=== PATIENT | male | born 1990 | race Caucasian/White ===

== ENCOUNTER 2020-09-21 20:11 | Inpatient (IN) | payer SELFPAY ==
[~2020-09-21] VITALS: Ht 185.4 cm; Wt 89.1 kg
[2020-09-21] MEDS ORDERED: IV NORMAL SALINE 1000ML BAG 1,000 ML IV ONE (20:30)
[2020-09-21] MEDS ORDERED: CHARCOAL/SORBITOL 50 GM/240 ML SUSPENSION. PO ONE (20:30)
--- NOTE | 2020-09-21 20:35 | ED.ADGEN ---
Past Medical History Past Medical History: Anxiety, Other Additional Past Medical Histor: opioid addiction Past Surgical History: No Surgical History Smoking Status: Never Smoker Alcohol Use: Occasionally General Adult EDM: Chief Complaint: OVERDOSE HPI: HPI: Patient is a 30 year old male brought in by EMS for overdose. 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 Patient states an hour prior to arrival he took approximately 40 hydrocodone 103 25. Patient states he has not thrown up since. Patient has a history of methadone use been trying to wean himself off them and having some withdrawal symptoms over the past few days. Bought these hydrocodone's off the street. Denies any coingestions. Denies any recent illness. Review of Systems: Review of Systems: All other systems within normal limits except for as noted in the HPI Current Medications: Current Medications Medications (Trade) Dose Ordered Sig/Kenneth Start Time Stop Time Status Last Admin Dose Admin Charcoal/Sorbitol (Insta-Lisset Sorbitol) 50 gm 1X ONCE 09/21/20 20:30 09/21/20 20:31 DC 09/21/20 20:42 50 GM Sodium Chloride 1,000 ml @ 1,000 mls/hr 1X ONCE 09/21/20 20:30 09/21/20 21:29 DC 09/21/20 20:43 1,000 MLS/HR Allergies: Allergies: Allergies Coded Allergies Type Severity Reaction Last Updated Verified Penicillins Allergy Unknown 09/21/20 Yes topiramate Allergy Unknown 09/21/20 Yes Physical Exam: PE: Constitutional: Well developed, well nourished, no acute distress, non-toxic appearance. [] HENT: Normocephalic, atraumatic, bilateral external ears normal, nose normal. [] Eyes: PERRLA, conjunctiva normal, no discharge. [] Neck: No rigidity, supple, no stridor. [] Cardiovascular: Regular rate and rhythm, brisk cap refill [] Lungs & Thorax: Non labored symmetric respirations, no tachypnea or respiratory distress [] Abdomen: Soft, nondistended. Skin: Warm, dry, no erythema, no rash. [] Back: Unremarkable Extremities: No deformities, range of motion grossly intact, no lower extremity edema [] Neurologic: Alert and oriented X 3, no focal deficits noted. [] Psychologic: Flat affect[] Current Patient Data: Labs: Laboratory Tests Test 09/21/20 20:40 09/21/20 21:20 09/21/20 23:07 09/22/20 00:02 White Blood Count 7.1 x10^3/uL (4.0-11.0) Red Blood Count 4.35 x10^6/uL (4.30-5.70) Hemoglobin 12.9 g/dL (13.0-17.5) L Hematocrit 38.1 % (39.0-53.0) L Mean Corpuscular Volume 88 fL (79-100) Mean Corpuscular Hemoglobin 30 pg (25-35) Mean Corpuscular Hemoglobin Concent 34 g/dL (31-37) Red Cell Distribution Width 12.6 % (11.5-14.5) Platelet Count 226 x10^3/uL (140-400) Neutrophils (%) (Auto) 67 % (31-73) Lymphocytes (%) (Auto) 22 % (24-48) L Monocytes (%) (Auto) 7 % (0-9) Eosinophils (%) (Auto) 3 % (0-3) Basophils (%) (Auto) 1 % (0-3) Neutrophils # (Auto) 4.8 x10^3/uL (1.8-7.7) Lymphocytes # (Auto) 1.6 x10^3/uL (1.0-4.8) Monocytes # (Auto) 0.5 x10^3/uL (0.0-1.1) Eosinophils # (Auto) 0.2 x10^3/uL (0.0-0.7) Basophils # (Auto) 0.0 x10^3/uL (0.0-0.2) Prothrombin Time 12.9 SEC (11.7-14.0) Prothrombin Time INR 1.0 (0.8-1.1) Sodium Level 141 mmol/L (136-145) Potassium Level 4.0 mmol/L (3.5-5.1) Chloride Level 104 mmol/L (98-107) Carbon Dioxide Level 27 mmol/L (21-32) Anion Gap 10 (6-14) Blood Urea Nitrogen 14 mg/dL (8-26) Creatinine 0.8 mg/dL (0.7-1.3) Estimated GFR (Cockcroft-Gault) 112.0 BUN/Creatinine Ratio 18 (6-20) Glucose Level 102 mg/dL (70-99) H Calcium Level 8.7 mg/dL (8.5-10.1) Phosphorus Level 4.0 mg/dL (2.6-4.7) Magnesium Level 2.1 mg/dL (1.8-2.4) Total Bilirubin 0.3 mg/dL (0.2-1.0) Aspartate Amino Transferase (AST) 20 U/L (15-37) Alanine Aminotransferase (ALT) 27 U/L (16-63) Alkaline Phosphatase 115 U/L (46-116) Total Protein 7.3 g/dL (6.4-8.2) Albumin 3.5 g/dL (3.4-5.0) Albumin/Globulin Ratio 0.9 (1.0-1.7) L Thyroid Stimulating Hormone (TSH) 1.399 uIU/mL (0.358-3.74) Salicylates Level < 2.8 mg/dL (2.8-20.0) L Salicylate Last Dose Date Unknown Salicylate Last Dose Time Unknown Acetaminophen Level 82.1 mcg/ml (10-30) H 35.8 mcg/ml (10-30) H Acetaminophen Last Dose Date Unknown Acetaminophen Last Dose Time Unknown Ethyl Alcohol Level < 10 mg/dL (0-10) Urine Collection Type Unknown Urine Color Yellow Urine Clarity Clear Urine pH 6.0 (<5.0-8.0) Urine Specific [place] 1.020 (1.000-1.030) Urine Protein Negative mg/dL (NEG-TRACE) Urine Glucose (UA) Negative mg/dL (NEG) Urine Ketones (Stick) Negative mg/dL (NEG) Urine Blood Negative (NEG) Urine Nitrite Negative (NEG) Urine Bilirubin Negative (NEG) Urine Urobilinogen Dipstick 0.2 mg/dL (0.2 mg/dL) Urine Leukocyte Esterase Negative (NEG) Urine RBC 0 /HPF (0-2) Urine WBC Occ /HPF (0-4) Urine Bacteria 0 /HPF (0-FEW) Urine Mucus Mod /LPF Urine Opiates Screen Pos (NEG) Urine Methadone Screen Pos (NEG) Urine Barbiturates Neg (NEG) Urine Phencyclidine Screen Neg (NEG) Urine Amphetamine/Methamphetamine Neg (NEG) Urine Benzodiazepines Screen Neg (NEG) Urine Cocaine Screen Neg (NEG) Urine Cannabinoids Screen Neg (NEG) Urine Ethyl Alcohol Neg (NEG) SARS-CoV-2 Antigen (Rapid) Negative (NEGATIVE) Laboratory Tests 09/21/20 20:40 Laboratory Tests 09/21/20 20:40 Vital Signs: Vital Signs Date Time Temp Pulse Resp B/P (MAP) Pulse Ox O2 Delivery O2 Flow Rate FiO2 09/22/20 06:57 85 13 97 09/22/20 04:00 97.7 97.7 09/21/20 20:11 129/80 (96) Room Air EKG: EKG: Sinus rhythm, heart rate 81 bpm, normal axis, no ST ovation depression, no ectopy, T waves unremarkable. [] Heart Score: Risk Factors: Risk Factors: DM, Current or recent (<one month) smoker, HTN, HLP, family hist ory of CAD, obesity. Risk Scores: Score 0 - 3: 2.5% MACE over next 6 weeks - Discharge Home Score 4 - 6: 20.3% MACE over next 6 weeks - Admit for Clinical Observation Score 7 - 10: 72.7% MACE over next 6 weeks - Early Invasive Strategies Radiology/Procedures: Radiology/Procedures: [] Course & Med Decision Making: Course & Med Decision Making Patient given activated charcoal on arrival. 4-hour acetaminophen level dropped to 30. Resulted back to poison control center as patient is now cleared does not need any interventions. Discussed with psych assessment team and will contact us tomorrow we will hold that for patient is pending a chart review and accepting physician. Pending psychiatric placement at shift change I received signout at shift change. Patient has been medically cleared from Tylenol overdose. Spoke to [facility] Michelle and patient reported he was involuntary because he wanted his "withdrawal" treated, takes methadone. [facility]. Pt now reports he's voluntary. Will admit for psych consult. I have spoken with the patient and/or caregivers. I have explained the patient's condition, diagnosis and treatment plan based on the information available to me at this time. I have answered the patient's and/or caregivers questions and answered any concerns. The patient and/or caregivers have as good an understanding of the patient's diagnosis, condition and treatment plan as can be expected at this point. The patient has been stabilized within the capability of the emergency department. The patient will be transported for further care and management or will be moved to an observation or inpatient service. I have communicated with the staff or medical practitioner taking over this patient's care. Dragon Disclaimer: Dragon Disclaimer: This electronic medical record was generated, in whole or in part, using a voice recognition dictation system. Departure Departure Impression: Primary Impression: Suicide attempt by acetaminophen overdose Disposition: ADMITTED INPT THIS HOSP Admitting Physician: ASHLY (Dr. Louis) Condition: STABLE NIK SOL MD Sep 21, 2020 20:35 AMOS TORRES DO Sep 22, 2020 07:29
[2020-09-21 20:59] LABS: BASO % 1 % (0-3); EOS # 0.2 x10^3/uL (0.0-0.7); EOS % 3 % (0-3); HEMATOCRIT 38.1 % (39.0-53.0); HEMOGLOBIN 12.9 g/dL (13.0-17.5); LYMPH # 1.6 x10^3/uL (1.0-4.8); LYMPH % 22 % (24-48); MEAN CORPUSCULAR HEMOGLOBIN 30 pg (25-35); MEAN CORPUSCULAR HGB CONC 34 g/dL (31-37); MEAN CORPUSCULAR VOLUME 88 fL (79-100); MONO # 0.5 x10^3/uL (0.0-1.1); MONO % 7 % (0-9); NEUT # 4.8 x10^3/uL (1.8-7.7); NEUT % 67 % (31-73); PLATELET COUNT 226 x10^3/uL (140-400); RED BLOOD COUNT 4.35 x10^6/uL (4.30-5.70); RED CELL DISTRIBUTION WIDTH 12.6 % (11.5-14.5); WHITE BLOOD COUNT 7.1 x10^3/uL (4.0-11.0)
[2020-09-21 21:09] LABS: PROTHROMBIN TIME PATIENT 12.9 SEC (11.7-14.0)
[2020-09-21 21:10] LABS: CALCIUM 8.7 mg/dL (8.5-10.1); CREATININE 0.8 mg/dL (0.7-1.3)
[2020-09-21 21:16] LABS: ALBUMIN 3.5 g/dL (3.4-5.0); ALBUMIN/GLOBULIN RATIO 0.9 (1.0-1.7); MAGNESIUM 2.1 mg/dL (1.8-2.4); TOTAL BILIRUBIN 0.3 mg/dL (0.2-1.0); TOTAL PROTEIN 7.3 g/dL (6.4-8.2)
[2020-09-21 21:20] LABS: ACETAMIN 82.1 mcg/ml (10-30); ETHANOL < 10 mg/dL (0-10); SALIC < 2.8 mg/dL (2.8-20.0)
[2020-09-21 21:30] LABS: BILIRUBIN,URINE NEGATIVE (NEG); CLARITY,URINE CLEAR; COLOR,URINE YELLOW; NITRITE,URINE NEGATIVE (NEG); PROTEIN,URINE NEGATIVE (NEG-TRACE); UROBILINOGEN,URINE 0.2 mg/dL (0.2 mg/dL)
[2020-09-21 21:37] LABS: BARBITURATES NEG (NEG); BENZODIAZEPINES NEG (NEG); CANNABINOIDS NEG (NEG); COCAINE NEG (NEG); METHADONE POS (NEG); OPIATES POS (NEG); PHENCYCLIDINE NEG (NEG)
[2020-09-21 21:39] LABS: AMPHETAMINE/METHAMPHETAMINE NEG (NEG)
[2020-09-21 21:41] LABS: BACTERIA,URINE 0 /HPF (0-FEW); RBC,URINE 0 /HPF (0-2); WBC,URINE OCC /HPF (0-4)
[2020-09-21 23:35] LABS: ACETAMIN 35.8 mcg/ml (10-30)
--- NOTE | 2020-09-22 04:42 | EKG ---
[facility] [address] [place] [address] Test Date: 2020-09-21 Test Time: 20:33:40 Pat Name: PERFECTO LAMA Department: Room: Gender: M Sample Case Porter: : 1990 Requested By: NIK SOL Order Number: [id number] Reading MD: Anthony Kahn Measurements Intervals [place] Rate: 81 P: 38 [place]: 144 QRS: 17 QRSD: 80 T: 42 QT: 362 QTc: 421 Interpretive Statements SINUS RHYTHM NORMAL ECG RI6.01 No previous ECG available for comparison Electronically Signed On 09-30-2020 13:01:22 [employer]CHNICIAN by Anthony Kahn
[2020-09-22] MEDS ORDERED: LACTULOSE 20 GM/30 ML SOLUTION. PO PRN (08:00)
[2020-09-22] MEDS ORDERED: MAGNESIUM HYDROXIDE 2,400 MG/30 ML ORAL.SUSP. PO PRN (08:00)
[2020-09-22] MEDS ORDERED: ELECTROLYTE (NON-ICU) PROTOCOL. MC PRN (08:00)
[2020-09-22] MEDS ORDERED: PROCHLORPERAZINE 25 MG SUPP.RECT. PR PRN (08:00)
[2020-09-22] MEDS ORDERED: BISACODYL 10 MG SUPP.RECT. PR PRN (08:00)
[2020-09-22] MEDS ORDERED: CALCIUM CARBONATE 500 MG TAB.CHEW PO PRN (08:00)
[2020-09-22] MEDS ORDERED: MAG HYDROX/ALUMINUM HYD/SIMETH 30 ML ORAL.SUSP PO PRN (08:00)
[2020-09-22] MEDS ORDERED: HYDROcodone/APAP 5/325MG 1 TAB TABLET PO PRN (08:00)
[2020-09-22] MEDS ORDERED: KETOROLAC 15 MG/ML VIAL. IV PRN (08:00)
[2020-09-22] MEDS: SENNOSIDES/DOCUSATE 8.6/50MG TABLET. PO SCH ×3 (09:00→19:41)
[2020-09-22 10:00] VITALS: BP 150/74
--- NOTE | 2020-09-22 10:43 | NUR ---
RUPERT following for discharge planning. Spoke with RN and reviewed chart. Pt on room air. Pt COVID pending, Rapid negative. Pt on 1:1 per SI attempt via OD. ELKE referral to [facility] for possible placement. RUPERT following. Addendum: 09/22/20 at 1558 by TERESA EMERY Spoke with Bakari from [facility]. Waiting on COVID result for in-patient psych placement. Rapid negative, awaiting results of PCR.
[2020-09-22] MEDS: ONDANSETRON PF 4 MG/2 ML VIAL. IVP PRN (11:25)
[2020-09-22] MEDS: HEPARIN for SUB-Q USE 5,000 UNIT/ML VIAL. SQ SCH ×2 (13:34→19:42)
[2020-09-22 14:59] VITALS: BP 144/80
--- NOTE | 2020-09-22 16:54 | PDOC1 ---
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 Apparently the patient had taken 40 hydrocodone's of 05/24/2025 and was given activated charcoal in the emergency department. Course in the emergency department is as follows Course & Med Decision Making Patient given activated charcoal on arrival. 4-hour acetaminophen level dropped to 30. Resulted back to poison control center as patient is now cleared does not need any interventions. Discussed with psych assessment team and will contact us tomorrow we will hold that for patient is pending a chart review and accepting physician. Pending psychiatric placement at shift change I received signout at shift change. Patient has been medically cleared from Tylenol overdose. Spoke to [facility] Martinez and patient reported he was involuntary because he wanted his "withdrawal" treated, takes methadone. Declined by [facility] Martinez. Pt now reports he's voluntary. Will admit for psych consult. I have spoken with the patient and/or caregivers. I have explained the patient's condition, diagnosis and treatment plan based on the information available to me at this time. I have answered the patient's and/or caregivers questions and answered any concerns. The patient and/or caregivers have as good an understanding of the patient's diagnosis, condition and treatment plan as can be expected at this point. The patient has been [facility] of [facility] emergency department. The patient will be transported for further care and management or will be moved to an observation or inpatient service. I have communicated with the staff or medical practitioner taking over this patient's care. The patient is currently on methadone trying to wean off his opiate addiction. He is quite tearful during my encounter, reassurance has been provided medically the patient seems to be in no apparent distress and he has been admitted for medical optimization prior to transitioning to an inpatient psych facility most likely patient denies any headache no blurred vision no chest pain no palpitations no shortness of breath no abdominal pain no nausea vomiting or diarrhea has been reported. No urinary symptoms, plan of care explained in detail and all concerns addressed to the best of my abilities. Past Medical History Past Medical History Opioid abuse Psych: Anxiety, Addictions Past Surgical History Past Surgical History: No pertinent history Family History Family History: No Significant Social History Smoke: No ALCOHOL: none Drugs: None, Other (Methadone) Current Problem List Problem List Problems Medical Problems: (1) Suicide attempt by acetaminophen overdose Status: Acute Current Medications Current Medications Current Medications Medications (Trade) Dose Ordered Sig/Kenneth Start Time Stop Time Status Last Admin Dose Admin Acetaminophen (Tylenol) 650 mg PRN Q6HRS PRN 09/22/20 08:00 Acetaminophen/ Hydrocodone Bitart (Lortab 5/325) 1 tab PRN Q4HRS PRN 09/22/20 08:00 Al Hydroxide/Mg Hydroxide (Mylanta Plus Xs) 30 ml PRN Q3HRS PRN 09/22/20 08:00 Alprazolam (Xanax) 0.5 mg PRN Q8HRS PRN 09/22/20 12:00 Bisacodyl (Dulcolax Supp) 10 mg PRN DAILY PRN 09/22/20 08:00 Calcium Carbonate/ Glycine (Tums) 500 mg PRN Q3HRS PRN 09/22/20 08:00 Charcoal/Sorbitol (Insta-Lisset Sorbitol) 50 gm 1X ONCE 09/21/20 20:30 09/21/20 20:31 DC 09/21/20 20:42 50 GM Heparin Sodium (Porcine) (Heparin Sodium) 5,000 unit Q8HRS 09/22/20 14:00 09/22/20 13:34 5,000 UNIT Info (Non-Icu Electrolyte Protocol) 1 ea PRN DAILY PRN 09/22/20 08:00 Ketorolac Tromethamine (Toradol 15mg Vial) 15 mg PRN Q6HRS PRN 09/22/20 08:00 09/27/20 07:59 Lactulose (Lactulose) 20 gm PRN Q12HR PRN 09/22/20 08:00 Magnesium Hydroxide (Milk Of Magnesia) 2,400 mg PRN Q12HR PRN 09/22/20 08:00 Ondansetron HCl (Zofran) 4 mg PRN Q6HRS PRN 09/22/20 08:00 09/22/20 11:25 4 MG Prochlorperazine (Compazine) 25 mg PRN Q12HR PRN 09/22/20 08:00 Senna/Docusate Sodium (Senna Plus) 1 tab BID 09/22/20 09:00 09/22/20 11:25 1 TAB Sodium Chloride 1,000 ml @ 1,000 mls/hr 1X ONCE 09/21/20 20:30 09/21/20 21:29 DC 09/21/20 20:43 1,000 MLS/HR Zolpidem Tartrate (Ambien) 5 mg PRN QHS PRN 09/22/20 08:00 Allergies Allergies Allergies Coded Allergies Type Severity Reaction Last Updated Verified Penicillins Allergy Intermediate 09/22/20 Yes topiramate Allergy Intermediate 09/22/20 Yes ROS Review of System CONSTITUTIONAL: No fever or chills EYES: No recent changes SKIN: No rash or itching CARDIOVASCULAR: No chest pain, syncope, palpitations, or edema RESPIRATORY: No SOB or cough GASTROINTESTINAL: No nausea, vomiting or abdominal pain NEUROLOGICAL: No headaches or weakness ENDOCRINE: No cold or heat intolerance GENITOURINARY: No urgency or frequency of urination MUSCULOSKELETAL: No back pain or joint pain LYMPHATICS: No enlarged lymph nodes PSYCHIATRIC: No anxiety or depression Physical Exam Physical Exam GEN.: No apparent distress. Alert and oriented. HEENT: Head is normocephalic, atraumatic NECK: Supple. LUNGS: Clear to auscultation. HEART: RRR, S1, S2 present. Peripheral pulses intact ABDOMEN: Soft, nontender. Positive bowel sounds. EXTREMITIES: Without any cyanosis. NEUROLOGIC: Normal speech, normal tone PSYCHIATRIC: Normal affect, normal mood. SKIN: No ulcerations Vitals Vitals Vital Signs Date Time Temp Pulse Resp B/P (MAP) Pulse Ox O2 Delivery O2 Flow Rate FiO2 09/22/20 14:59 97.9 86 18 144/80 (101) 100 Room Air 97.9 Labs Labs Laboratory Tests Test 09/21/20 20:40 09/21/20 21:20 09/21/20 23:07 09/22/20 00:02 White Blood Count 7.1 x10^3/uL (4.0-11.0) Red Blood Count 4.35 x10^6/uL (4.30-5.70) Hemoglobin 12.9 g/dL (13.0-17.5) Hematocrit 38.1 % (39.0-53.0) Mean Corpuscular Volume 88 fL (79-100) Mean Corpuscular Hemoglobin 30 pg (25-35) Mean Corpuscular Hemoglobin Concent 34 g/dL (31-37) Red Cell Distribution Width 12.6 % (11.5-14.5) Platelet Count 226 x10^3/uL (140-400) Neutrophils (%) (Auto) 67 % (31-73) Lymphocytes (%) (Auto) 22 % (24-48) Monocytes (%) (Auto) 7 % (0-9) Eosinophils (%) (Auto) 3 % (0-3) Basophils (%) (Auto) 1 % (0-3) Neutrophils # (Auto) 4.8 x10^3/uL (1.8-7.7) Lymphocytes # (Auto) 1.6 x10^3/uL (1.0-4.8) Monocytes # (Auto) 0.5 x10^3/uL (0.0-1.1) Eosinophils # (Auto) 0.2 x10^3/uL (0.0-0.7) Basophils # (Auto) 0.0 x10^3/uL (0.0-0.2) Prothrombin Time 12.9 SEC (11.7-14.0) Prothromb Time International Ratio 1.0 (0.8-1.1) Sodium Level 141 mmol/L (136-145) Potassium Level 4.0 mmol/L (3.5-5.1) Chloride Level 104 mmol/L (98-107) Carbon Dioxide Level 27 mmol/L (21-32) Anion Gap 10 (6-14) Blood Urea Nitrogen 14 mg/dL (8-26) Creatinine 0.8 mg/dL (0.7-1.3) Estimated GFR (Cockcroft-Gault) 112.0 BUN/Creatinine Ratio 18 (6-20) Glucose Level 102 mg/dL (70-99) Calcium Level 8.7 mg/dL (8.5-10.1) Phosphorus Level 4.0 mg/dL (2.6-4.7) Magnesium Level 2.1 mg/dL (1.8-2.4) Total Bilirubin 0.3 mg/dL (0.2-1.0) Aspartate Amino Transf (AST/SGOT) 20 U/L (15-37) Alanine Aminotransferase (ALT/SGPT) 27 U/L (16-63) Alkaline Phosphatase 115 U/L (46-116) Total Protein 7.3 g/dL (6.4-8.2) Albumin 3.5 g/dL (3.4-5.0) Albumin/Globulin Ratio 0.9 (1.0-1.7) Thyroid Stimulating Hormone (TSH) 1.399 uIU/mL (0.358-3.74) Salicylates Level < 2.8 mg/dL (2.8-20.0) Salicylate Last Dose Date Unknown Salicylate Last Dose Time Unknown Acetaminophen Level 82.1 mcg/ml (10-30) 35.8 mcg/ml (10-30) Acetaminophen Last Dose Date Unknown Acetaminophen Last Dose Time Unknown Ethyl Alcohol Level < 10 mg/dL (0-10) Urine Collection Type Unknown Urine Color Yellow Urine Clarity Clear Urine pH 6.0 (<5.0-8.0) Urine Specific [place] 1.020 (1.000-1.030) Urine Protein Negative mg/dL (NEG-TRACE) Urine Glucose (UA) Negative mg/dL (NEG) Urine Ketones (Stick) Negative mg/dL (NEG) Urine Blood Negative (NEG) Urine Nitrite Negative (NEG) Urine Bilirubin Negative (NEG) Urine Urobilinogen Dipstick 0.2 mg/dL (0.2 mg/dL) Urine Leukocyte Esterase Negative (NEG) Urine RBC 0 /HPF (0-2) Urine WBC Occ /HPF (0-4) Urine Bacteria 0 /HPF (0-FEW) Urine Mucus Mod /LPF Urine Opiates Screen Pos (NEG) Urine Methadone Screen Pos (NEG) Urine Barbiturates Neg (NEG) Urine Phencyclidine Screen Neg (NEG) Urine Amphetamine/Methamphetamine Neg (NEG) Urine Benzodiazepines Screen Neg (NEG) Urine Cocaine Screen Neg (NEG) Urine Cannabinoids Screen Neg (NEG) Urine Ethyl Alcohol Neg (NEG) SARS-CoV-2 Antigen (Rapid) Negative (NEGATIVE) Laboratory Tests Test 09/21/20 20:40 09/21/20 21:20 09/21/20 23:07 09/22/20 00:02 White Blood Count 7.1 x10^3/uL (4.0-11.0) Red Blood Count 4.35 x10^6/uL (4.30-5.70) Hemoglobin 12.9 g/dL (13.0-17.5) Hematocrit 38.1 % (39.0-53.0) Mean Corpuscular Volume 88 fL (79-100) Mean Corpuscular Hemoglobin 30 pg (25-35) Mean Corpuscular Hemoglobin Concent 34 g/dL (31-37) Red Cell Distribution Width 12.6 % (11.5-14.5) Platelet Count 226 x10^3/uL (140-400) Neutrophils (%) (Auto) 67 % (31-73) Lymphocytes (%) (Auto) 22 % (24-48) Monocytes (%) (Auto) 7 % (0-9) Eosinophils (%) (Auto) 3 % (0-3) Basophils (%) (Auto) 1 % (0-3) Neutrophils # (Auto) 4.8 x10^3/uL (1.8-7.7) Lymphocytes # (Auto) 1.6 x10^3/uL (1.0-4.8) Monocytes # (Auto) 0.5 x10^3/uL (0.0-1.1) Eosinophils # (Auto) 0.2 x10^3/uL (0.0-0.7) Basophils # (Auto) 0.0 x10^3/uL (0.0-0.2) Prothrombin Time 12.9 SEC (11.7-14.0) Prothromb Time International Ratio 1.0 (0.8-1.1) Sodium Level 141 mmol/L (136-145) Potassium Level 4.0 mmol/L (3.5-5.1) Chloride Level 104 mmol/L (98-107) Carbon Dioxide Level 27 mmol/L (21-32) Anion Gap 10 (6-14) Blood Urea Nitrogen 14 mg/dL (8-26) Creatinine 0.8 mg/dL (0.7-1.3) Estimated GFR (Cockcroft-Gault) 112.0 BUN/Creatinine Ratio 18 (6-20) Glucose Level 102 mg/dL (70-99) Calcium Level 8.7 mg/dL (8.5-10.1) Phosphorus Level 4.0 mg/dL (2.6-4.7) Magnesium Level 2.1 mg/dL (1.8-2.4) Total Bilirubin 0.3 mg/dL (0.2-1.0) Aspartate Amino Transf (AST/SGOT) 20 U/L (15-37) Alanine Aminotransferase (ALT/SGPT) 27 U/L (16-63) Alkaline Phosphatase 115 U/L (46-116) Total Protein 7.3 g/dL (6.4-8.2) Albumin 3.5 g/dL (3.4-5.0) Albumin/Globulin Ratio 0.9 (1.0-1.7) Thyroid Stimulating Hormone (TSH) 1.399 uIU/mL (0.358-3.74) Salicylates Level < 2.8 mg/dL (2.8-20.0) Salicylate Last Dose Date Unknown Salicylate Last Dose Time Unknown Acetaminophen Level 82.1 mcg/ml (10-30) 35.8 mcg/ml (10-30) Acetaminophen Last Dose Date Unknown Acetaminophen Last Dose Time Unknown Ethyl Alcohol Level < 10 mg/dL (0-10) Urine Collection Type Unknown Urine Color Yellow Urine Clarity Clear Urine pH 6.0 (<5.0-8.0) Urine Specific [place] 1.020 (1.000-1.030) Urine Protein Negative mg/dL (NEG-TRACE) Urine Glucose (UA) Negative mg/dL (NEG) Urine Ketones (Stick) Negative mg/dL (NEG) Urine Blood Negative (NEG) Urine Nitrite Negative (NEG) Urine Bilirubin Negative (NEG) Urine Urobilinogen Dipstick 0.2 mg/dL (0.2 mg/dL) Urine Leukocyte Esterase Negative (NEG) Urine RBC 0 /HPF (0-2) Urine WBC Occ /HPF (0-4) Urine Bacteria 0 /HPF (0-FEW) Urine Mucus Mod /LPF Urine Opiates Screen Pos (NEG) Urine Methadone Screen Pos (NEG) Urine Barbiturates Neg (NEG) Urine Phencyclidine Screen Neg (NEG) Urine Amphetamine/Methamphetamine Neg (NEG) Urine Benzodiazepines Screen Neg (NEG) Urine Cocaine Screen Neg (NEG) Urine Cannabinoids Screen Neg (NEG) Urine Ethyl Alcohol Neg (NEG) SARS-CoV-2 Antigen (Rapid) Negative (NEGATIVE) VTE Prophylaxis Ordered VTE Prophylaxis Devices: Yes VTE Pharmacological Prophylaxi: No Assessment/Plan Assessment/Plan Suicide attempt Acetaminophen overdose secondary to the above Methadone use Anemia nonspecified etiology Person under investigation for coronavirus pending placement Plan Suicide precaution Resume home medications Xanax as needed for anxiety PET team consult Further recommendations based on the clinical course Disposition hopefully transfer to psych facility when bed available Justifications for Admission Other Justification TY GARDINER MD Sep 22, 2020 16:54
[2020-09-22 19:00] VITALS: BP 120/74
[2020-09-22] MEDS: ALPRAZolam 0.5 MG TABLET PO PRN (19:40)
[2020-09-22] MEDS: ZOLPIDEM 5 MG TABLET. PO PRN (19:41)
[2020-09-22 23:00] VITALS: BP 105/60
[2020-09-23 03:00] VITALS: BP 107/60
[2020-09-23] MEDS: ALPRAZolam 0.5 MG TABLET PO PRN ×3 (04:29→20:17)
[2020-09-23] MEDS: HEPARIN for SUB-Q USE 5,000 UNIT/ML VIAL. SQ SCH ×3 (05:20→21:12)
[2020-09-23 07:00] VITALS: BP 98/60
[2020-09-23] MEDS: SENNOSIDES/DOCUSATE 8.6/50MG TABLET. PO SCH ×2 (09:00→20:17)
--- NOTE | 2020-09-23 09:30 | NUR ---
PATIENT SITTING UP IN THE BED, DENIES PAIN/DISCOMFORT, REFUSING AM DOSE OF SENNA BUT HAD A BM ON09/22/20, WILL MONITOR.
--- NOTE | 2020-09-23 09:45 | NUR ---
PHONE CALL RECEIVED FROM PATIENTS , INQUIRED ABOUT THE PROGRESS AND STATUS OF PATIENT AND INFORMED THIS PERSONAL COACH TO LRT THE PATIENT KNOW THAT HER AND HIS CHILDREN LOVED HIM AND WERE PRAYING FOR HIM, PATIENT INFORMED.
[2020-09-23 11:00] VITALS: BP 120/64
--- NOTE | 2020-09-23 13:33 | PDOC ---
PROGRESS NOTES Date of Service: DATE: 09/23/20 TIME: 13:31 Chief Complaint Chief Complaint Assessment/Plan Suicide attempt Acetaminophen overdose secondary to the above Methadone use Anemia nonspecified etiology Person under investigation for coronavirus pending placement Plan Suicide precaution Resume home medications Xanax as needed for anxiety PET team consult Further recommendations based on the clinical course Disposition hopefully transfer to psych facility when bed available History of Present Illness History of Present Illness History of Present Illness Patient is a 30-year-old gentleman with past medical history of anxiety and opioid addiction who was in his usual state of health until the night prior to his admission when he was on the phone with 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 Apparently the patient had taken 40 hydrocodone's of 05/24/2025 and was given activated charcoal in the emergency department. Course in the emergency department is as follows The patient is currently on methadone trying to wean off his opiate addiction. He is quite tearful during my encounter, reassurance has been provided medically the patient seems to be in no apparent distress and he has been admitted for medical optimization prior to transitioning to an inpatient psych facility most likely patient denies any headache no blurred vision no chest pain no palpita tions no shortness of breath no abdominal pain no nausea vomiting or diarrhea has been reported. No urinary symptoms, plan of care explained in detail and all concerns addressed to the best of my abilities. 09/23/2020 No acute events reported overnight, case discussed with nursing staff patient in no acute distress no complaints during my visit Vitals Vitals Vital Signs Date Time Temp Pulse Resp B/P (MAP) Pulse Ox O2 Delivery O2 Flow Rate FiO2 09/23/20 11:00 97.8 74 19 120/64 (82) 95 Room Air 97.8 Physical Exam Physical Exam GEN: No apparent distress. Alert and oriented HEENT: Normal cephalic, atraumatic, external auditory canals are patent. Mucous membranes are moist but appears to be pale as well. EYES: Extraocular muscles are intact, pupil are equally round and reactive to light and accommodation. Conjunctive does appear to be pale MUSCULOSKELETAL: Well developed , well nourished, good range of motion ENDOCRINE: No thyromegaly was palpated LYMPHATICS: No cervical chain or axillary nodes were noted HEMATOPOIETIC: No bruising NECK: Supple, no JVD, no thyromegaly was noted LUNGS: Clear to auscultation in all lung ramires without rhonchi or wheezing HEART: RRR, S!, S2 present. Peripheral pulses intact, no obvious murmurs noted ABDOMEN: Soft, nontender. Positive bowel sounds, no organomegaly, normal bowel sounds EXTREMITIES: Without clubbing, cyanosis, or edema. Pedal pulses intact. Negative Homans sign NEUROLOGIC: Normal speech and tone. A&O x 3, moves all extremities, no obvious focal deficits PSYCHIATRIC: Normal affect, normal mood. Stable SKIN: No ulcerations or rashes, good skin turgor, no jaundice VASCULAR: Good capillary refill, neurovascular bundle appears to be intact Review of Systems Review of Systems Review of systems pertinent as per HPI otherwise 14 point review of system is negative Assessment and Plan Assessmemt and Plan Problems Medical Problems: (1) Suicide attempt by acetaminophen overdose Status: Acute Comment Review of Relevant I have reviewed the following items laura (where applicable) has been applied. Labs Laboratory Tests Test 09/21/20 20:40 09/21/20 21:20 09/21/20 23:07 09/22/20 00:02 White Blood Count 7.1 x10^3/uL (4.0-11.0) Red Blood Count 4.35 x10^6/uL (4.30-5.70) Hemoglobin 12.9 g/dL (13.0-17.5) Hematocrit 38.1 % (39.0-53.0) Mean Corpuscular Volume 88 fL (79-100) Mean Corpuscular Hemoglobin 30 pg (25-35) Mean Corpuscular Hemoglobin Concent 34 g/dL (31-37) Red Cell Distribution Width 12.6 % (11.5-14.5) Platelet Count 226 x10^3/uL (140-400) Neutrophils (%) (Auto) 67 % (31-73) Lymphocytes (%) (Auto) 22 % (24-48) Monocytes (%) (Auto) 7 % (0-9) Eosinophils (%) (Auto) 3 % (0-3) Basophils (%) (Auto) 1 % (0-3) Neutrophils # (Auto) 4.8 x10^3/uL (1.8-7.7) Lymphocytes # (Auto) 1.6 x10^3/uL (1.0-4.8) Monocytes # (Auto) 0.5 x10^3/uL (0.0-1.1) Eosinophils # (Auto) 0.2 x10^3/uL (0.0-0.7) Basophils # (Auto) 0.0 x10^3/uL (0.0-0.2) Prothrombin Time 12.9 SEC (11.7-14.0) Prothromb Time International Ratio 1.0 (0.8-1.1) Sodium Level 141 mmol/L (136-145) Potassium Level 4.0 mmol/L (3.5-5.1) Chloride Level 104 mmol/L (98-107) Carbon Dioxide Level 27 mmol/L (21-32) Anion Gap 10 (6-14) Blood Urea Nitrogen 14 mg/dL (8-26) Creatinine 0.8 mg/dL (0.7-1.3) Estimated GFR (Cockcroft-Gault) 112.0 BUN/Creatinine Ratio 18 (6-20) Glucose Level 102 mg/dL (70-99) Calcium Level 8.7 mg/dL (8.5-10.1) Phosphorus Level 4.0 mg/dL (2.6-4.7) Magnesium Level 2.1 mg/dL (1.8-2.4) Total Bilirubin 0.3 mg/dL (0.2-1.0) Aspartate Amino Transf (AST/SGOT) 20 U/L (15-37) Alanine Aminotransferase (ALT/SGPT) 27 U/L (16-63) Alkaline Phosphatase 115 U/L (46-116) Total Protein 7.3 g/dL (6.4-8.2) Albumin 3.5 g/dL (3.4-5.0) Albumin/Globulin Ratio 0.9 (1.0-1.7) Thyroid Stimulating Hormone (TSH) 1.399 uIU/mL (0.358-3.74) Salicylates Level < 2.8 mg/dL (2.8-20.0) Salicylate Last Dose Date Unknown Salicylate Last Dose Time Unknown Acetaminophen Level 82.1 mcg/ml (10-30) 35.8 mcg/ml (10-30) Acetaminophen Last Dose Date Unknown Acetaminophen Last Dose Time Unknown Ethyl Alcohol Level < 10 mg/dL (0-10) Urine Collection Type Unknown Urine Color Yellow Urine Clarity Clear Urine pH 6.0 (<5.0-8.0) Urine Specific Johnson 1.020 (1.000-1.030) Urine Protein Negative mg/dL (NEG-TRACE) Urine Glucose (UA) Negative mg/dL (NEG) Urine Ketones (Stick) Negative mg/dL (NEG) Urine Blood Negative (NEG) Urine Nitrite Negative (NEG) Urine Bilirubin Negative (NEG) Urine Urobilinogen Dipstick 0.2 mg/dL (0.2 mg/dL) Urine Leukocyte Esterase Negative (NEG) Urine RBC 0 /HPF (0-2) Urine WBC Occ /HPF (0-4) Urine Bacteria 0 /HPF (0-FEW) Urine Mucus Mod /LPF Urine Opiates Screen Pos (NEG) Urine Methadone Screen Pos (NEG) Urine Barbiturates Neg (NEG) Urine Phencyclidine Screen Neg (NEG) Urine Amphetamine/Methamphetamine Neg (NEG) Urine Benzodiazepines Screen Neg (NEG) Urine Cocaine Screen Neg (NEG) Urine Cannabinoids Screen Neg (NEG) Urine Ethyl Alcohol Neg (NEG) SARS-CoV-2 Antigen (Rapid) Negative (NEGATIVE) Medications Current Medications Sodium Chloride 1,000 ml @ 1,000 mls/hr 1X ONCE IV Last administered on 09/21/20at 20:43; Start 09/21/20 at 20:30; Stop 09/21/20 at 21:29; Status DC Charcoal/Sorbitol (Insta-Lisset Sorbitol) 50 gm 1X ONCE PO Last administered on 09/21/20at 20:42; Start 09/21/20 at 20:30; Stop 09/21/20 at 20:31; Status DC Ondansetron HCl (Zofran) 4 mg PRN Q6HRS PRN IVP NAUSEA/VOMITING Last administered on 09/22/20at 11:25; Start 09/22/20 at 08:00 Prochlorperazine (Compazine) 25 mg PRN Q12HR PRN [place] NAUSEA/VOMITING; Start 09/22/20 at 08:00 Al Hydroxide/Mg Hydroxide (Mylanta Plus Xs) 30 ml PRN Q3HRS PRN PO HEARTBURN / GAS; Start 09/22/20 at 08:00 Calcium Carbonate/ Glycine (Tums) 500 mg PRN Q3HRS PRN PO UPSET STOMACH; Start 09/22/20 at 08:00 Zolpidem Tartrate (Ambien) 5 mg PRN QHS PRN PO INSOMNIA, MAY REPEAT IN 1HR Last administered on 09/22/20at 19:41; Start 09/22/20 at 08:00 Info (Non-Icu Electrolyte Protocol) 1 ea PRN DAILY PRN MC SEE COMMENTS; Start 09/22/20 at 08:00 Acetaminophen/ Hydrocodone Bitart (Lortab 5/325) 1 tab PRN Q4HRS PRN PO MILD PAIN 1-3; Start 09/22/20 at 08:00 Ketorolac Tromethamine (Toradol 15mg Vial) 15 mg PRN Q6HRS PRN IV PAIN Last administered on 09/22/20at 17:37; Start 09/22/20 at 08:00; Stop 09/27/20 at 07:59 Acetaminophen (Tylenol) 650 mg PRN Q6HRS PRN PO Headaches, Temp > 101.5F; Start 09/22/20 at 08:00 Senna/Docusate Sodium (Senna Plus) 1 tab BID PO Last administered on 09/22/20at 19:41; Start 09/22/20 at 09:00 Magnesium Hydroxide (Milk Of Magnesia) 2,400 mg PRN Q12HR PRN PO CONSTIPATION; Start 09/22/20 at 08:00 Lactulose (Lactulose) 20 gm PRN Q12HR PRN PO CONSTIPATION, 2nd CHOICE; Start 09/22/20 at 08:00 Bisacodyl (Dulcolax Supp) 10 mg PRN DAILY PRN [place] CONSTIPATION; Start 09/22/20 at 08:00 Heparin Sodium (Porcine) (Heparin Sodium) 5,000 unit Q8HRS SQ Last administered on 09/22/20at 19:42; Start 09/22/20 at 14:00 Alprazolam (Xanax) 0.5 mg PRN Q8HRS PRN PO ANXIETY / AGITATION Last a dministered on 09/23/20at 12:32; Start 09/22/20 at 12:00 Vitals/I & O Vital Sign - Last 24 Hours 09/22/20 09/22/20 09/22/20 09/22/20 14:59 19:00 20:00 23:00 Temp 97.9 99.4 98.3 97.9 99.4 98.3 Pulse 86 84 18 Resp 18 18 18 B/P (MAP) 144/80 (101) 120/74 (89) 105/60 (75) Pulse Ox 100 O2 Delivery Room Air Room Air Room Air Room Air 09/23/20 09/23/20 09/23/20 09/23/20 03:00 07:00 08:00 11:00 Temp 98.3 98.0 97.8 98.3 98.0 97.8 Pulse 18 61 74 Resp 19 19 B/P (MAP) 107/60 (76) 98/60 (73) 120/64 (82) Pulse Ox 95 95 O2 Delivery Room Air Room Air Room Air Room Air Intake and Output 09/22/20 09/22/20 09/23/20 15:00 23:00 07:00 Intake Total 440 ml 100 ml Balance 440 ml 100 ml Justicifation of Admission Dx: Justifications for Admission: Justification of Admission Dx: Comment: (Suicidal ideation) TY GARDINER MD Sep 23, 2020 13:33
--- NOTE | 2020-09-23 13:45 | NUR ---
SW following for discharge planning. Spoke with RN and reviewed chart. Pt remains on 1:1 for SI. PCR COVID result remains pending. Spoke with Bakari from [facility]. Awaiting COVID results for possible discharge to in-patient behavioral health facility. SW following.
--- NOTE | 2020-09-23 14:55 | NUR ---
PATIENT MOVED TO ROOM 670 DUE TO SHOWER IN CURRENT ROOM NOT GETTING HOT.
[2020-09-23 15:00] VITALS: BP 122/65
[2020-09-23] MEDS: ACETAMINOPHEN 325 MG TABLET. PO PRN (17:59)
[2020-09-23 19:00] VITALS: BP 126/80
[2020-09-23] MEDS: ZOLPIDEM 5 MG TABLET. PO PRN (20:17)
[2020-09-23 23:00] VITALS: BP 128/74
[2020-09-24 03:00] VITALS: BP 132/70
[2020-09-24] MEDS: ALPRAZolam 0.5 MG TABLET PO PRN ×2 (06:18→14:53)
[2020-09-24] MEDS: HEPARIN for SUB-Q USE 5,000 UNIT/ML VIAL. SQ SCH ×2 (06:19→13:59)
[2020-09-24] MEDS: ONDANSETRON PF 4 MG/2 ML VIAL. IVP PRN (06:28)
[2020-09-24 07:00] VITALS: BP 117/71
[2020-09-24] MEDS: SENNOSIDES/DOCUSATE 8.6/50MG TABLET. PO SCH (09:44)
[2020-09-24 11:00] VITALS: BP 109/66
--- NOTE | 2020-09-24 12:49 | PDOC ---
PROGRESS NOTES Date of Service: DATE: 09/24/20 TIME: 12:47 Chief Complaint Chief Complaint Assessment/Plan Suicide attempt Acetaminophen overdose secondary to the above Methadone use Anemia nonspecified etiology Person under investigation for coronavirus pending placement Plan Suicide precaution Resume home medications Xanax as needed for anxiety PET team consult Further recommendations based on the clinical course Disposition hopefully transfer to psych facility when bed available History of Present Illness History of Present Illness History of Present Illness Patient is a 30-year-old gentleman with past medical history of anxiety and opioid addiction who was in his usual state of health until the night prior to his admission when 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 Apparently the patient had taken 40 hydrocodone's of 05/24/2025 and was given activated charcoal in the emergency department. Course in the emergency department is as follows The patient is currently on methadone trying to wean off his opiate addiction. He is quite tearful during my encounter, reassurance has been provided medically the patient seems to be in no apparent distress and he has been admitted for medical optimization prior to transitioning to an inpatient psych facility most likely patient denies any headache no blurred vision no chest pain no palpita tions no shortness of breath no abdominal pain no nausea vomiting or diarrhea has been reported. No urinary symptoms, plan of care explained in detail and all concerns addressed to the best of my abilities. 09/23/2020 No acute events reported overnight, case discussed with nursing staff patient in no acute distress no complaints during my visit Vitals Vitals Vital Signs Date Time Temp Pulse Resp B/P (MAP) Pulse Ox O2 Delivery O2 Flow Rate FiO2 09/24/20 11:00 98.2 71 18 109/66 (80) 100 Room Air 98.2 Physical Exam Physical Exam Gen.: well-developed well-nourished in no apparent distress Head: Normal shape atraumatic Eyes: Pupils equal reactive to light and accommodation, normal conjunctivae and lids Ears: Normal shape Nose: Normal shape no trauma Mouth: No exudates of the back of throat no thrush no lesions Neck: Supple no JVD no carotid bruit or lymphadenopathy no thyromegaly Chest: Lungs clear to auscultation with good inspiratory effort no crackles rales or rhonchi Cardiovascular: S1-S2 regular rhythm no murmurs gallops or rubs Abdomen: Bowel sounds present soft nontender no hepatosplenomegaly appreciated sign Extremities: No clubbing no cyanosis no edema peripheral pulses palpated bilaterally Neurological: Alert awake oriented in person time place and situation, cranial nerves II through XII intact, no motor or sensory deficits appreciated Psych: Appropriate mood, cooperative Labs LABS Current Medications Medications (Trade) Dose Ordered Sig/Kenneth Route PRN Reason Start Time Stop Time Status Last Admin Dose Admin Sodium Chloride 1,000 ml @ 1,000 mls/hr 1X ONCE IV 09/21/20 20:30 09/21/20 21:29 DC 09/21/20 20:43 Charcoal/Sorbitol (Insta-Lisset Sorbitol) 50 gm 1X ONCE PO 09/21/20 20:30 09/21/20 20:31 DC 09/21/20 20:42 Ondansetron HCl (Zofran) 4 mg PRN Q6HRS PRN IVP NAUSEA/VOMITING 09/22/20 08:00 09/24/20 06:28 Prochlorperazine (Compazine) 25 mg PRN Q12HR PRN [place] NAUSEA/VOMITING 09/22/20 08:00 Al Hydroxide/Mg Hydroxide (Mylanta Plus Xs) 30 ml PRN Q3HRS PRN PO HEARTBURN / GAS 09/22/20 08:00 Calcium Carbonate/ Glycine (Tums) 500 mg PRN Q3HRS PRN PO UPSET STOMACH 09/22/20 08:00 Zolpidem Tartrate (Ambien) 5 mg PRN QHS PRN PO INSOMNIA, MAY REPEAT IN 1HR 09/22/20 08:00 09/23/20 20:17 Info (Non-Icu Electrolyte Protocol) 1 ea PRN DAILY PRN MC SEE COMMENTS 09/22/20 08:00 Acetaminophen/ Hydrocodone Bitart (Lortab 5/325) 1 tab PRN Q4HRS PRN PO MILD PAIN 1-3 09/22/20 08:00 Ketorolac Tromethamine (Toradol 15mg Vial) 15 mg PRN Q6HRS PRN IV PAIN 09/22/20 08:00 09/27/20 07:59 09/22/20 17:37 Acetaminophen (Tylenol) 650 mg PRN Q6HRS PRN PO Headaches, Temp > 101.5F 09/22/20 08:00 09/23/20 17:59 Senna/Docusate Sodium (Senna Plus) 1 tab BID PO 09/22/20 09:00 09/24/20 09:44 Magnesium Hydroxide (Milk Of Magnesia) 2,400 mg PRN Q12HR PRN PO CONSTIPATION 09/22/20 08:00 Lactulose (Lactulose) 20 gm PRN Q12HR PRN PO CONSTIPATION, 2nd CHOICE 09/22/20 08:00 Bisacodyl (Dulcolax Supp) 10 mg PRN DAILY PRN [place] CONSTIPATION 09/22/20 08:00 Heparin Sodium (Porcine) (Heparin Sodium) 5,000 unit Q8HRS SQ 09/22/20 14:00 09/24/20 06:19 Alprazolam (Xanax) 0.5 mg PRN Q8HRS PRN PO ANXIETY / AGITATION 09/22/20 12:00 09/24/20 06:18 Assessment and Plan Assessmemt and Plan Problems Medical Problems: (1) Suicide attempt by acetaminophen overdose Status: Acute Comment Review of Relevant I have reviewed the following items laura (where applicable) has been applied. Labs Laboratory Tests Test 09/23/20 06:20 Coronavirus (PCR) Not detected (Not Detected) Medications Current Medications Sodium Chloride 1,000 ml @ 1,000 mls/hr 1X ONCE IV Last administered on 09/21/20at 20:43; Start 09/21/20 at 20:30; Stop 09/21/20 at 21:29; Status DC Charcoal/Sorbitol (Insta-Lisset Sorbitol) 50 gm 1X ONCE PO Last administered on 09/21/20at 20:42; Start 09/21/20 at 20:30; Stop 09/21/20 at 20:31; Status DC Ondansetron HCl (Zofran) 4 mg PRN Q6HRS PRN IVP NAUSEA/VOMITING Last administered on 09/24/20at 06:28; Start 09/22/20 at 08:00 Prochlorperazine (Compazine) 25 mg PRN Q12HR PRN [place] NAUSEA/VOMITING; Start 09/22/20 at 08:00 Al Hydroxide/Mg Hydroxide (Mylanta Plus Xs) 30 ml PRN Q3HRS PRN PO HEARTBURN / GAS; Start 09/22/20 at 08:00 Calcium Carbonate/ Glycine (Tums) 500 mg PRN Q3HRS PRN PO UPSET STOMACH; Start 09/22/20 at 08:00 Zolpidem Tartrate (Ambien) 5 mg PRN QHS PRN PO INSOMNIA, MAY REPEAT IN 1HR Last administered on 09/23/20at 20:17; Start 09/22/20 at 08:00 Info (Non-Icu Electrolyte Protocol) 1 ea PRN DAILY PRN MC SEE COMMENTS; Start 09/22/20 at 08:00 Acetaminophen/ Hydrocodone Bitart (Lortab 5/325) 1 tab PRN Q4HRS PRN PO MILD PAIN 1-3; Start 09/22/20 at 08:00 Ketorolac Tromethamine (Toradol 15mg Vial) 15 mg PRN Q6HRS PRN IV PAIN Last administered on 09/22/20at 17:37; Start 09/22/20 at 08:00; Stop 09/27/20 at 07:59 Acetaminophen (Tylenol) 650 mg PRN Q6HRS PRN PO Headaches, Temp > 101.5F Last administered on 09/23/20at 17:59; Start 09/22/20 at 08:00 Senna/Docusate Sodium (Senna Plus) 1 tab BID PO Last administered on 09/24/20at 09:44; Start 09/22/20 at 09:00 Magnesium Hydroxide (Milk Of Magnesia) 2,400 mg PRN Q12HR PRN PO CONSTIPATION; Start 09/22/20 at 08:00 Lactulose (Lactulose) 20 gm PRN Q12HR PRN PO CONSTIPATION, 2nd CHOICE; Start 09/22/20 at 08:00 Bisacodyl (Dulcolax Supp) 10 mg PRN DAILY PRN [place] CONSTIPATION; Start 09/22/20 at 08:00 Heparin Sodium (Porcine) (Heparin Sodium) 5,000 unit Q8HRS SQ Last administered on 09/24/20at 06:19; Start 09/22/20 at 14:00 Alprazolam (Xanax) 0.5 mg PRN Q8HRS PRN PO ANXIETY / AGITATION Last administered on 09/24/20at 06:18; Start 09/22/20 at 12:00 Vitals/I & O Vital Sign - Last 24 Hours 09/23/20 09/23/20 09/23/20 09/23/20 15:00 19:00 20:05 23:00 Temp 98.3 97.3 97.6 98.3 97.3 97.6 Pulse 67 65 69 Resp 19 18 B/P (MAP) 122/65 (84) 126/80 (95) 128/74 (92) Pulse Ox 95 97 100 O2 Delivery Room Air Room Air Room Air Room Air 09/24/20 09/24/20 09/24/20 09/24/20 03:00 07:00 08:00 11:00 Temp 97.6 98.2 98.2 97.6 98.2 98.2 Pulse 70 57 71 Resp 18 18 18 B/P (MAP) 132/70 (90) 117/71 (86) 109/66 (80) Pulse Ox 100 100 100 O2 Delivery Room Air Room Air Room Air Room Air Intake and Output 09/23/20 09/23/20 09/24/20 14:59 22:59 06:59 Intake Total 480 ml 680 ml 1000 ml Balance 480 ml 680 ml 1000 ml Justicifation of Admission Dx: Justifications for Admission: Justification of Admission Dx: Comment: (Suicidal ideation) TY GARDINER MD Sep 24, 2020 12:49
[2020-09-24] MEDS: ACETAMINOPHEN 325 MG TABLET. PO PRN (13:54)
[2020-09-24] MEDS ORDERED: ALPR0.5T6 PO (14:33)
--- NOTE | 2020-09-24 14:36 | PDOC3 ---
Discharge Summary Visit Information Date of Admission: Sep 22, 2020 Date of Discharge: Sep 24, 2020 Admitting Diagnosis Comment: Suicide attempt Acetaminophen overdose secondary to the above Methadone use Anemia nonspecified etiology Person under investigation for coronavirus pending placement Final Diagnosis Problems Medical Problems: (1) Suicide attempt by acetaminophen overdose Status: Acute Suicide attempt cleared by PAT team Acetaminophen overdose secondary to the above Methadone use Anemia nonspecified etiology Person under investigation for coronavirus pending placement Brief Hospital Course Allergies Allergies Coded Allergies Type Severity Reaction Last Updated Verified Penicillins Allergy Intermediate 09/22/20 Yes topiramate Allergy Intermediate 09/22/20 Yes Vital Signs Vital Signs Date Time Temp Pulse Resp B/P (MAP) Pulse Ox O2 Delivery O2 Flow Rate FiO2 09/24/20 11:00 98.2 71 18 109/66 (80) 100 Room Air 98.2 Lab Results Laboratory Tests Test 09/23/20 06:20 Coronavirus (PCR) Not detected (Not Detected) Brief Hospital Course History of Present Illness Patient is a 30-year-old gentleman with past medical history of anxiety and opioid addiction who was in his usual state of health until the night prior to his admission when he was 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 Apparently the patient had taken 40 hydrocodone's of 05/24/2025 and was given activated charcoal in the emergency department. Course in the emergency department is as follows The patient is currently on methadone trying to wean off his opiate addiction. He is quite tearful during my encounter, reassurance has been provided medically the patient seems to be in no apparent distress and he has been admitted for medical optimization prior to transitioning to an inpatient psych facility most likely patient denies any headache no blurred vision no chest pain no palpitations no shortness of breath no abdominal pain no nausea vomiting or diarrhea has been reported. No urinary symptoms, plan of care explained in detail and all concerns addressed to the best of my abilities. 09/23/2020 No acute events reported overnight, case discussed with nursing staff patient in no acute distress no complaints during my visit 09/24/2020 Patient's coronavirus test was negative and he was reevaluated by the PET team. He referred to me that he did put he thought it was the only way of getting into the hospital and trying to get help with his methadone withdrawal. He was in an argument with his in seem like he had reached a point where he was desperate and could not find someone to help him know our institution he could reach out to in order to undergo the withdrawal from his methadone. He was offered narcotics throughout her hospital stay but he adamantly refused since he wants to be free from substances. He has a good support system at home in [place] where he is from and hopefully he will enroll in a support program moving forward. He will be given Ativan for withdrawal symptoms and I have encouraged him to establish care with a primary care physician in the community where he resides Support resources were given by our telephonic case manager safe planning by PET team prior to discharge. Family will pick him up later in the day Discharge Information Condition at Discharge: Improved Follow Up: Weeks Disposition/Orders: D/C to Home Scheduled PRN Alprazolam (Alprazolam) 0.5 Mg Tablet, 0.5 MG PO PRN Q8HRS PRN for ANXIETY / AGITATION for 7 Days, #21 Prescribed by: TY GARDINER MD on 09/24/20 1433 Justicifation of Admission Dx: Justifications for Admission: Justification of Admission Dx: Comment: (Suicidal ideation) TY GARDINER MD Sep 24, 2020 14:36
--- NOTE | 2020-09-24 14:42 | NUR ---
SW following for discharge planning. Spoke with RN and reviewed chart. Shelli from [facility] met with pt today and was able to safety plan with pt. Pt no longer SI per Shelli. Pt provided with a list of safety net clinics in [place] per Shelli. Pt to discharge home today, self-care. No further SW needs at this time.
[2020-09-24 15:49] VITALS: BP 117/73
--- NOTE | 2020-09-24 17:47 | NUR ---
Discharge Note: [facility] Discharge instructions and discharge home medications reviewed with patient and a copy given. All questions have been answered and understanding verbalized. The following instructions and handouts were given: Prescription for alprazolam Suicide education for the patient, family Discussed to seek help, call hotline if having suicidal thoughts Check resources/ consult clinic for management of opioid withdrawal. Resources given by the PAT team Discontinued lines and drains:peripheral IV intact, patient tolerated removal, no complications noted Patient discharged to home ambulatory, on room air at 1743.
== END 2020-09-24 17:43 | disposition home or self-care (01) | DRG 918 ==
LOC: ER 20:11 → ED HOLD 09-22 07:26 → 6 SOUTH 09-22 09:59
PROVIDERS: ADMIT Internal Medicine; ATTEND Internal Medicine
DX: T39.1X2A Poisoning by 4-Aminophenol derivatives, intentional self-harm, initial encounter (principal); Y92.89 Other specified places as the place of occurrence of the external cause; D64.9 Anemia, unspecified; F41.9 Anxiety disorder, unspecified; Z88.0 Allergy status to penicillin; Z88.8 Allergy status to other drugs, medicaments and biological substances; Z20.822 Contact with and (suspected) exposure to COVID-19; F11.90 Opioid use, unspecified, uncomplicated
CPT/HCPCS: 36415; 80053; 80307; 80329; 81001; 83735; 84100; 84443; 85025; 85610; 87426; 93005; 96360; G0480; J1644; J1885; J2405; J7030; U0003; 99285-25; G0378